=== PATIENT | male | born 1960 ===

== ENCOUNTER 2017-11-07 10:02 | Emergency (ER) | payer OTHER ==
[2017-11-07] MEDS ORDERED: Sodium Chloride 0.9% 1,000 ML IV STA (11:05)
[2017-11-07] MEDS ORDERED: Sodium Chloride 0.9% 1,000 ML ONE (11:13)
[2017-11-07] MEDS ORDERED: Morphine 4 MG/ML VIAL ONE (11:20)
[2017-11-07 11:27] LABS: BASO # 0.1 K/uL (0.0-0.2); BASO % 0.5 % (0.0-2.0); EOS # 0.1 K/uL (0.0-0.7); EOS % 0.6 % (0.0-4.0); HEMOGLOBIN 12.4 g/dL (12.0-18.0); LYMPH % 8.4 % (20.0-40.0); MEAN CELL VOLUME 77.8 fL (80.0-94.0); MEAN CORPUSCULAR HEMOGLOBIN 25.9 pg (27.0-31.0); MEAN CORPUSCULAR HGB CONC 33.3 g/dL (33.0-37.0); MEAN PLATELET VOLUME 9.4 fL (7.2-11.7); MONO # 0.5 K/uL (0.0-0.8); MONO % 4.6 % (0.0-10.0); NEUT # 10.1 K/uL (1.8-7.0); NEUT % 85.9 % (50.0-75.0); PLATELET COUNT 325 K/uL (130-400); RED CELL DISTRIBUTION WIDTH 14.7 % (11.5-14.5); WHITE BLOOD COUNT 11.7 K/uL (4.8-10.8)
[2017-11-07 11:30] LABS: SQUAMOUS EPITHIAL < 1 /hpf (0-5); URINE BILIRUBIN NEGATIVE (NEGATIVE); URINE BLOOD NEGATIVE (NEGATIVE); URINE CLARITY Clear (Clear); URINE COLOR Yellow (YELLOW); URINE GLUCOSE (UA) NORMAL (Normal); URINE LEUKOCYTE ESTERASE NEG Leu/uL (Negative); URINE NITRATE NEGATIVE (NEGATIVE); URINE PROTEIN NEGATIVE (NEGATIVE); URINE UROBILINOGEN NORMAL mg/dL (0.2-1.0)
[2017-11-07 11:35] LABS: ALB/GLOB RATIO 1.2 (1.0-2.1); ALBUMIN 4.2 g/dL (3.5-5.0); ALT/SGPT 33 U/L (21-72); AST/SGOT 29 U/L (17-59); BLOOD UREA NITROGEN 15 mg/dL (9-20); GFR AFRICAN-AMERICAN > 60; GFR NON-AFRICAN AMERICAN > 60; LIPASE 391 U/L (23-300)
--- NOTE | 2017-11-07 11:36 | C.PDOC ---
History Of Present Illness 56 year old male presents to ED for evaluation of diffuse abdominal pain that started at 2:00AM today. Pt reports 10 loose bowel movements today but denies diarrhea when asked. Otherwise, denies nausea, vomiting, dysuria, hematuria, back pain, or fever. Chief Complaint (Nursing): Abdominal Pain History Per: Patient History/Exam Limitations: no limitations Onset/Duration Of Symptoms: Hrs, Sudden Onset Current Symptoms Are (Timing): Still Present Location Of Pain/Discomfort: Diffuse Radiation Of Pain To:: None Quality Of Discomfort: "Pain" Associated Symptoms: denies: Nausea, Vomiting, Loss Of Appetite, Back Pain, Chest Pain, Urinary Symptoms Exacerbating Factors: None Alleviating Factors: None Recent travel outside of the [place]: No Additional History Per: Patient Past Medical History Reviewed: Historical Data, Nursing Documentation, Vital Signs Vital Signs: Last Vital Signs Temp 98.5 F 11/07/17 13:42 Pulse 80 11/07/17 13:42 Resp 20 11/07/17 13:42 BP 104/57 L 11/07/17 13:42 Pulse Ox 100 11/07/17 16:06 - Medical History PMH: Arthritis, Diabetes Family History: States: Unknown Family Hx - Social History Hx Tobacco Use: No Hx Alcohol Use: No Hx Substance Use: No - Immunization History Hx Tetanus Toxoid Vaccination: No Hx Influenza Vaccination: Yes Hx Pneumococcal Vaccination: No Review Of Systems Except As Marked, All Systems Reviewed And Found Negative. Constitutional: Negative for: Fever, Chills Cardiovascular: Negative for: Chest Pain, Palpitations Respiratory: Negative for: Cough, Shortness of Breath Gastrointestinal: Positive for: Abdominal Pain. Negative for: Nausea, Vomiting , Melena, Hematochezia Genitourinary: Negative for: Dysuria, Frequency, Hematuria Musculoskeletal: Negative for: Back Pain Neurological: Negative for: Headache, Dizziness Physical Exam - Physical Exam Appears: Non-toxic, No Acute Distress Skin: Normal Color, Warm, Dry Head: Atraumatic, Normacephalic Eye(s): bilateral: Normal Inspection Oral Mucosa: Moist Neck: Normal ROM, Supple Cardiovascular: Rhythm Regular, No Murmur Respiratory: Normal Breath Sounds, No Rales, No Rhonchi, No Wheezing Gastrointestinal/Abdominal: Soft, Tenderness (epigastric), No Guarding, No Rebound Back: No CVA Tenderness Extremity: Normal ROM, No Pedal Edema, No Deformity Neurological/Psych: Oriented x3, Normal Speech ED Course And Treatment - Laboratory Results Result Diagrams: 11/07/17 11:17 11/07/17 11:17 O2 Sat by Pulse Oximetry: 100 (RA) Pulse Ox Interpretation: Normal - CT Scan/US US abdomrn Other Rad Studies (CT/US): Read By Radiologist, Radiology Report Reviewed CT/US Interpretation: Accession No. : [id number]. Patient Name / ID : EDIN ALFONSO / [id number]. Exam Date : 11/07/2017 14:16:46 ( Approved ) . Study Comment : Sex / Age : M / [id number]. Creator : Meena Balderas MD. Dictator : Meena Balderas MD. Pump House Technician : Carbon Cutter : Meena Balderas MD. Approver2 : Report Date : 11/07/2017 14:51:16. My Comment : . HISTORY: upper abdominal pain. COMPARISON: None available. TECHNIQUE: Sonographic evaluation of the right upper quadrant of the abdomen. FINDINGS: LIVER: Measures 13 cm in length. Echogenic liver may be seen in setting of hepatic parenchymal disease or fatty infiltration. Region of suspected focal fatty sparing within the right hepatic lobe. The main portal vein appears patent with normal directional flow. No intrahepatic bile duct dilatation. GALLBLADDER: Contracted state of the gallbladder limits evaluation. No gallstones. No gallbladder wall thickening or pericholecystic edema. Negative sonographic Walker's sign as assessed by the laborer electroplating. COMMON BILE DUCT: Measures 4 mm. PANCREAS: Not well-visualized. RIGHT KIDNEY: Measures 10.7 x 4.4 x 5.8 cm. No obstructing calculus or hydronephrosis identified. AORTA: Limited visualization appears grossly unremarkable. IVC: Limited visualization appears grossly unremarkable. OTHER FINDINGS: None . IMPRESSION : Echogenic liver may be seen in setting of hepatic parenchymal disease or fatty infiltration. Region of suspected focal fatty sparing within the right hepatic lobe. Contracted gallbladder state limits evaluation. Otherwise grossly unremarkable. Progress Note: Blood work, UA ordered and reviewed. Patient was given Morphine, Protonix, Zofran, and IV fluids. On reassessment, patient is resting comfortably , abdomen remains soft, and patient is tolerating PO. patient is stable to be d/ c home with PMD follow up. Disposition - Disposition Referrals: Wai Espino MD [Medical Doctor] - Disposition: HOME/ ROUTINE Disposition Time: 16:03 Condition: IMPROVED Additional Instructions: Follow up with PMD within 1-2 days. Return to Ed if feel worse. Prescriptions: Dicyclomine [Bentyl] 20 mg PO TID #30 tab Instructions: Gastroenteritis (ED) Forms: [employer] (Georgian) - Clinical Impression Clinical Impression: Gastroenteritis - PA / SENIOR SYSTEMS ARCHITECT / Resident Statement MD/DO has reviewed & agrees with the documentation as recorded. - Scribe Statement The provider has reviewed the documentation as recorded by the Scribe Monie lopez All medical record entries made by the Scribe were at my direction and personally dictated by me. I have reviewed the chart and agree that the record accurately reflects my personal performance of the history, physical exam, medical decision making, and the department course for this patient. I have also personally directed, reviewed, and agree with the discharge instructions and disposition.
[2017-11-07 12:02] LABS: BANDS 3 % (0-2); LYMPHOCYTE 10 % (20-40); MONOCYTE 7 % (0-10); NEUTROPHIL 80 % (50-75); PLATELET ESTIMATE NORMAL (NORMAL); TOTAL CELLS COUNTED 100
[2017-11-07] MEDS ORDERED: Sodium Chloride 0.9% 500 ML IV STA (13:34)
[2017-11-07 13:43] VITALS: BP 104/57; PULSE 80; RESP 20; TEMP 98.5
[2017-11-07] MEDS ORDERED: Sodium Chloride 0.9% 500 ML IV ONE (13:48)
--- NOTE | 2017-11-07 14:52 | US ---
HISTORY: upper abdominal pain COMPARISON: None available. TECHNIQUE: Sonographic evaluation of the right upper quadrant of the abdomen. FINDINGS: LIVER: Measures 13 cm in length. Echogenic liver may be seen in setting of hepatic parenchymal disease or fatty infiltration. Region of suspected focal fatty sparing within the right hepatic lobe. The main portal vein appears patent with normal directional flow. No intrahepatic bile duct dilatation. GALLBLADDER: Contracted state of the gallbladder limits evaluation. No gallstones. No gallbladder wall thickening or pericholecystic edema. Negative sonographic Walker's sign as assessed by the cane feeder. COMMON BILE DUCT: Measures 4 mm. PANCREAS: Not well-visualized. RIGHT KIDNEY: Measures 10.7 x 4.4 x 5.8 cm. No obstructing calculus or hydronephrosis identified. AORTA: Limited visualization appears grossly unremarkable. IVC: Limited visualization appears grossly unremarkable. OTHER FINDINGS: None . IMPRESSION: Echogenic liver may be seen in setting of hepatic parenchymal disease or fatty infiltration. Region of suspected focal fatty sparing within the right hepatic lobe. Contracted gallbladder state limits evaluation. Otherwise grossly unremarkable.
[2017-11-07 16:06] VITALS: O2SAT 100
== END 2017-11-07 16:20 | disposition home or self-care (01) ==
LOC: C.ER 10:02
DX: K52.9 Noninfective gastroenteritis and colitis, unspecified (principal)
CPT/HCPCS: 76705; 80053; 81001; 83690; 85025; 96361; 96374; 96375; 99285; C9113; J2270; J2405; J7040

== ENCOUNTER 2018-11-21 06:37 | Day surgery (SDC) | payer OTHER ==
[2018-11-21] MEDS ORDERED: Propofol 10 mg/ml Inj (20 ML) ONE ×2 (08:17→08:42)
[2018-11-21] MEDS ORDERED: Lidocaine Hydrochloride 5 ML INJ ONE (08:19)
[2018-11-21] MEDS ORDERED: Lactated Ringer's 500 ML IV ONE (08:21)
--- NOTE | 2018-11-21 08:30 | CP.SDSHP ---
Same Day Surgery H & P - History Proposed Procedure: colonoscopy Pre-Op Diagnosis: screening for colon cancer - Previous Medical/Surgical History Endocrine/Metabolic: Diabetes Misc: Other (DJD) Pain: 2.Mild Pain Previous Surgical History: denies - Allergies Allergies: Allergies No Known Allergies Allergy (Verified 11/21/18 06:52) - Physical Exam Vital Signs: Vital Signs 11/21/18 06:45 Temperature 99.1 F Pulse Rate 80 Respiratory 20 Rate Blood Pressure 133/77 O2 Sat by Pulse 98 Oximetry Mental Status: Alert & Oriented x3 Neuro: WNL Heart: WNL Lungs: WNL GI: WNL - Impression Impression: screening for colon cancer Pt. Evaluated Today:Candidate for Anesthesia & Procedure: Yes - Date & Time Date: 11/21/18 Time: 08:30 Short Stay Discharge - Short Stay Discharge Admitting Diagnosis/Reason for Visit: SCREENING Disposition: HOME/ ROUTINE
[2018-11-21 08:35] VITALS: O2SAT 100
[2018-11-21 09:00] VITALS: TEMP 98.6
[2018-11-21 09:47] VITALS: BP 127/87; PULSE 95; RESP 12
== END 2018-11-21 09:47 | disposition home or self-care (01) ==
LOC: C.ENDO 06:37
PROVIDERS: ATTEND Internal Medicine Gastroenterology
DX: Z12.11 Encounter for screening for malignant neoplasm of colon (principal); E11.9 Type 2 diabetes mellitus without complications; K64.1 Second degree hemorrhoids; K57.30 Diverticulosis of large intestine without perforation or abscess without bleeding; M19.90 Unspecified osteoarthritis, unspecified site
CPT/HCPCS: 82948; G0121; J2704; J7120

== ENCOUNTER 2019-02-07 17:03 | Outpatient (CLI) | payer OTHER | END 2019-02-07 17:04 | disposition home or self-care (01) | LOC: C.RADH 17:03 ==